=== PATIENT | female | born 1945 | race Caucasian/White ===

== ENCOUNTER 2019-05-03 18:46 | Emergency (ER) | payer MEDICARE, BC ==
--- NOTE | 2019-05-03 19:47 | EDM.PDOC ---
ED HPI GENERAL MEDICAL PROBLEM - General Chief Complaint: Abdominal Pain Stated Complaint: ABD PAIN Time Seen by Provider: 05/03/19 19:00 Source of Information: Reports: Patient History Limitations: Reports: No Limitations - History of Present Illness INITIAL COMMENTS - FREE TEXT/NARRATIVE: This is a 73-year-old female. On she started having some lower abdominal pain that seemed to occur when she needed to go urinate. This has continued until this evening on her often fleeting as well as some fleeting pain in her belly button area and possibly her epigastric right upper quadrant area. No fever no chills no nausea or vomiting with this pain. It seems like after she urinates that much of this goes away. She thinks she might be running a mild fever and is wondering whether she might have the flu as well but she denies any congestion denies any cough. She is also wondering whether she might have an appendicitis since her entire family has had there is removed and she hasn't. She has had a hysterectomy but she still has her gallbladder and her appendix. No other acute findings. Lower Abdominal Pain Score (Numeric/FACES): 2 - Related Data Allergies Allergy/AdvReac Type Severity Reaction Status Date / Time No Known Allergies Allergy Verified 05/03/19 19:01 Home Meds: Home Meds Amoxicillin/Potassium Clav [Augmentin 875-125 Tablet] 1 each PO BID #20 tablet 05/03/19 [Rx] Past Medical History - Past Surgical History HEENT Surgical History: Reports: Adenoidectomy, Tonsillectomy Female Surgical History: Reports: Hysterectomy Social & Family History - Tobacco Use Smoking Status *Q: Current Every Day Smoker Years of Tobacco use: 30 Packs/Tins Daily: 0.1 - Caffeine Use Caffeine Use: Reports: Coffee, Soda - Recreational Drug Use Recreational Drug Use: No ED ROS GENERAL - Review of Systems Review Of Systems: See Below Constitutional: Reports: Fever. Denies: Chills HEENT: Reports: No Symptoms Respiratory: Reports: No Symptoms Cardiovascular: Reports: No Symptoms Endocrine: Reports: No Symptoms GI/Abdominal: Reports: Abdominal Pain, Diarrhea. Denies: Nausea, Vomiting : Reports: Urgency. Denies: Discharge, Dysuria Musculoskeletal: Reports: No Symptoms Skin: Reports: No Symptoms Neurological: Reports: No Symptoms Psychiatric: Reports: No Symptoms Hematologic/Lymphatic: Reports: No Symptoms ED EXAM, GI/ABD - Physical Exam Exam: See Below Exam Limited By: No Limitations General Appearance: Alert, WD/WN, No Apparent Distress Eyes: Bilateral: Normal Appearance Ears: Normal External Exam Nose: Normal Inspection Throat/Mouth: Normal Lips, Normal Voice, No Airway Compromise Head: Normocephalic Neck: Supple Respiratory/Chest: No Respiratory Distress, Lungs Clear, Normal Breath Sounds GI/Abdominal Exam: Soft, Non-Tender, Other (the patient keeps pressing around her bladder area mid lower abdomen stating this is where it seems to hurt the most when it does hurt) Back Exam: Full Range of Motion Extremities: Normal Inspection, Normal Range of Motion Neurological: Alert, Oriented Psychiatric: Normal Affect, Normal Mood Skin Exam: Warm, Dry Course - Vital Signs Last Recorded V/S: Last Vital Signs Temp 99.2 F 05/03/19 19:04 Pulse 84 05/03/19 19:04 Resp 20 05/03/19 19:04 BP 142/68 H 05/03/19 19:04 Pulse Ox 96 05/03/19 19:04 - Orders/Labs/Meds Orders: Active Orders 24 hr Category Date Time Status Abdomen Pelvis w Cont [CT] Stat Exams 05/03/19 20:57 Taken Labs: Laboratory Tests 05/03/19 05/03/19 05/03/19 Range/Units 18:56 19:53 19:53 WBC 13.59 H (3.98-10.04) K/mm3 RBC 4.73 (3.98-5.22) M/mm3 Hgb 14.4 (11.2-15.7) gm/dl Hct 42.8 (34.1-44.9) % MCV 90.5 (79.4-94.8) fl MCH 30.4 (25.6-32.2) pg MCHC 33.6 (32.2-35.5) g/dl RDW Std Deviation 45.9 (36.4-46.3) fL Plt Count 315 (182-369) K/mm3 MPV 8.5 L (9.4-12.3) fl Neut % (Auto) 74.6 H (34.0-71.1) % Lymph % (Auto) 15.7 L (19.3-51.7) % [place] % (Auto) 9.1 (4.7-12.5) % Eos % (Auto) 0.4 L (0.7-5.8) Baso % (Auto) 0.1 (0.1-1.2) % Neut # (Auto) 10.13 H (1.56-6.13) K/mm3 Lymph # (Auto) 2.13 (1.18-3.74) K/mm3 [place] # (Auto) 1.24 H (0.24-0.36) K/mm3 Eos # (Auto) 0.05 (0.04-0.36) K/mm3 Baso # (Auto) 0.02 (0.01-0.08) K/mm3 Manual Slide Review Normal smear Sodium 137 (136-145) mEq/L Potassium 3.7 (3.5-5.1) mEq/L Chloride 103 (98-107) mEq/L Carbon Dioxide 25 (21-32) mEq/L Anion Gap 12.7 (5-15) BUN 13 (7-18) mg/dL Creatinine 1.1 H (0.55-1.02) mg/dL Est Cr Clr Drug Dosing 40.51 mL/min Estimated GFR (MDRD) 49 (>60) mL/min BUN/Creatinine Ratio 11.8 L (14-18) Glucose 94 (83-115) mg/dL Calcium 9.3 (8.5-10.1) mg/dL Total Bilirubin 0.8 (0.2-1.0) mg/dL AST 26 (15-37) U/L ALT 32 (14-59) U/L Alkaline Phosphatase 80 (46-116) U/L C-Reactive Protein 7.0 H* (<1.0) mg/dL Total Protein 7.1 (6.4-8.2) g/dl Albumin 3.7 (3.4-5.0) g/dl Globulin 3.4 gm/dL Albumin/Globulin Ratio 1.1 (1-2) Urine Color Light yellow (Yellow) Urine Appearance Clear (Clear) Urine pH 7.0 (5.0-8.0) Ur Specific [place] 1.015 (1.005-1.030) Urine Protein Negative (Negative) Urine Glucose (UA) Negative (Negative) Urine Ketones Negative (Negative) Urine Occult Blood Trace-lysed H (Negative) Urine Nitrite Negative (Negative) Urine Bilirubin Negative (Negative) Urine Urobilinogen 0.2 (0.2-1.0) Ur Leukocyte Esterase Negative (Negative) Urine RBC 0-5 (0-5) /hpf Urine WBC 0-5 (0-5) /hpf Ur Squamous Epith Cells 5-10 H (0-5) /hpf Urine Bacteria Not seen (FEW) /hpf Urine Mucus Not seen (FEW) /hpf Meds: Medications Discontinued Medications Generic Name Dose Route Start Last Admin Trade Name Brandy PRN Reason Stop Dose Admin Iopamidol 100 ml 05/03/19 21:56 05/03/19 22:19 Isovue-300 (61%) IVPUSH 05/03/19 21:57 100 ml ONETIME ONE Administration - Radiology Interpretation Free Text/Narrative:: DT scan of the abdomen and pelvis reveals a sigmoid diverticulitis, the appendix was normal. - Re-Assessments/Exams Free Text/Narrative Re-Assessment/Exam: 05/03/19 23:32 Spoke to the patient regarding her diagnosis of diverticulitis of the sigmoid colon. I indicated they'll put her on some antibiotics that she needs to also start on some probiotics that she can get at the pharmacy and she is aware of this. In the meantime I cautioned her that if she has marked increased pain or fever greater than 101 she is to return to the ER or follow up with her primary care provider. Departure - Departure Time of Disposition: 23:33 Disposition: Home, Self-Care 01 Condition: Good Clinical Impression: Sigmoid diverticulitis - Discharge Information *PRESCRIPTION DRUG MONITORING PROGRAM REVIEWED*: Not Applicable *COPY OF PRESCRIPTION DRUG MONITORING REPORT IN PATIENT SAMM: Not Applicable Prescriptions: Amoxicillin/Potassium Clav [Augmentin 875-125 Tablet] 1 each PO BID #20 tablet Instructions: Diverticulitis, [id number] Referrals: PCP,Not In Area [Primary Care Provider] - Forms: ED Department Discharge Additional Instructions: Get the antibiotics filled tomorrow and start taking the antibiotics faithfully , get some probiotics at the pharmacy and start taking them as well, drink lots of fluids to stay well hydrated, if there's marked increased pain in the lower abdomen or if you have a fever greater than 101 follow-up with your family doctor or return to the ER, make certain that you follow-up with your family doctor later this week for recheck to make sure the diverticulitis is resolving - My Orders Last 24 Hours: My Active Orders 05/03/19 20:57 Abdomen Pelvis w Cont [CT] Stat - Assessment/Plan Last 24 Hours: My Active Orders 05/03/19 20:57 Abdomen Pelvis w Cont [CT] Stat
[2019-05-03] MEDS ORDERED: Iopamidol 612 MG/ML 100 ML Bottle IVPUSH ONE (21:56)
[2019-05-03] MEDS ORDERED: Amoxicillin/Clavulanate K 875-125 MG Tab PO ONE (23:34)
--- NOTE | 2019-05-05 06:36 | CT ---
CT abdomen and pelvis Technique: Multiple axial sections were obtained from above the dome of the diaphragm inferiorly through the pubic symphysis. Intravenous and oral contrast was utilized. Delayed images were also obtained through the bladder. Comparison: No prior abdominal imaging. Findings: Bowel wall thickening seen within the sigmoid colon. Diverticuli are seen within the sigmoid colon. Mild inflammatory change is seen around the area of the bowel wall thickening. Findings are felt compatible with diverticulitis. Visualized lung bases show nothing acute. Slight atelectasis incidentally noted. Liver contains no focal abnormality. Gallbladder contains no calcified gallstones. Spleen appears within normal limits. Adrenal glands show no nodule. Pancreas is within normal limits. Low density lesion noted within the mid right kidney measuring approximately 1.4 cm. This is most likely due to a slightly hemorrhagic cortical cyst. No additional abnormality is seen within the kidneys. Aorta shows no aneurysm. No retroperitoneal adenopathy or mesenteric abnormalities are seen. Appendix is seen which is normal. Cyst is noted within the left ovary measuring 3.5 cm. Small fat-containing left femoral hernia is noted. Delayed images show contrast within the distal ureters and within the bladder. Bone window settings were reviewed which show degenerative change at L1-L2 and L2-L3. Impression: 1. Findings compatible with sigmoid diverticulitis. 2. Cyst within the left ovary measuring 3.5 cm. Follow-up pelvic ultrasound is recommended in 6 months to see if this persists. 3. Other findings believed to be incidental as noted above. Diagnostic code #3 This report was dictated in [place] Standard Time I agree with preliminary report from [facility], finalized on 05/03/19, 11:40 PM Central Time
== END 2019-05-03 23:45 | disposition home or self-care (01) ==
LOC: JD.ED 18:46
DX: K57.32 Diverticulitis of large intestine without perforation or abscess without bleeding (principal); F17.210 Nicotine dependence, cigarettes, uncomplicated
CPT/HCPCS: 36415; 74177; 80053; 81001; 85025; 86140; 99284; A9270; Q9967; 99283